=== PATIENT | male | born 1995 | race African-American/Black ===

== ENCOUNTER 2024-01-11 17:51 | Emergency (ER) | payer OTHER ==
[~2024-01-11] VITALS: Ht 177.8 cm; Wt 58.0 kg
[2024-01-11 17:58] VITALS: BP 118/69; RESP 18; TEMP 98.5; O2SAT 98
[2024-01-11 17:59] VITALS: PULSE 105
[2024-01-11] MEDS: CEFTRIAXONE SODIUM 500MG VIAL IM ONE (19:11)
[2024-01-11] MEDS: LIDOCAINE HCL 1% 20ML VIAL INFIL ONE (19:11)
[2024-01-11 19:24] LABS: CLARITY URINE CLEAR (CLEAR); COLOR URINE YELLOW (YELLOW); GLUCOSE URINE NEGATIVE (NEGATIVE); KETONES URINE NEGATIVE (NEGATIVE); LEUKOCYTE ESTERASE URINE NEGATIVE (NEGATIVE); NITRITE URINE NEGATIVE (NEGATIVE); OCCULT BLOOD URINE NEGATIVE (NEGATIVE); PROTEIN URINE NEGATIVE (NEGATIVE); SPECIFIC GRAVITY URINE 1.027 (1.005-1.030)
[2024-01-11] MEDS ORDERED: AZIT500T8 MT (20:10)
[2024-01-14 04:07] LABS: CHLAMYDIA TRACHOMATIS NAA Negative (Negative); NEISSERIA GONORRHOEAE NAA Negative (Negative)
== END 2024-01-11 20:51 | disposition home or self-care (01) ==
LOC: ER 17:51
DX: R31.9 Hematuria, unspecified (principal)
CPT/HCPCS: 99283; 87491; 87591; 81003; 87086; 96372; J0696; J3490